=== PATIENT | female | born 1955 | race Caucasian/White ===

== ENCOUNTER → 2023-12-13 06:39 | Day surgery (SDC) | payer MEDICARE, SELFPAY | LOC: GI 06:39 | PROVIDERS: ATTENDING PHYSICIAN Internal Medicine | DX: Z12.11 Encounter for screening for malignant neoplasm of colon (principal); C20 Malignant neoplasm of rectum; D49.0 Neoplasm of unspecified behavior of digestive system; K57.30 Diverticulosis of large intestine without perforation or abscess without bleeding; D12.5 Benign neoplasm of sigmoid colon | CPT/HCPCS: 45380; 88305; 88342 ==

== ENCOUNTER → 2023-12-21 14:24 | Outpatient (REF) | payer MEDICARE, SELFPAY | LOC: HWRAD 14:24 | PROVIDERS: ATTENDING PHYSICIAN Surgery; FAMILY PHYSICIAN Family Medicine | DX: C20 Malignant neoplasm of rectum (principal) | CPT/HCPCS: 71260; 74177; Q9967 ==

== ENCOUNTER 2023-12-22 06:31 | Day surgery (SDC) | payer MEDICARE, SELFPAY ==
[2023-12-22 13:08] VITALS: BMI 38.9
[2023-12-22 13:10] VITALS: BMI 38.9
[2023-12-22 13:11] VITALS: BP 136/71
[2023-12-22 14:24] VITALS: BP 105/72
[2023-12-22 14:47] VITALS: BP 113/64
[2023-12-22 15:00] VITALS: BP 118/70
== END 2023-12-22 15:16 | disposition home or self-care (01) ==
LOC: SDS 06:31
PROVIDERS: ATTENDING PHYSICIAN Surgery
DX: C20 Malignant neoplasm of rectum (principal)
CPT/HCPCS: 45330

== ENCOUNTER → 2023-12-22 08:37 | Outpatient (REF) | payer MEDICARE, SELFPAY | LOC: MRI 3T 08:37 | PROVIDERS: ATTENDING PHYSICIAN Surgery; FAMILY PHYSICIAN Family Medicine | DX: C20 Malignant neoplasm of rectum (principal) | CPT/HCPCS: 72197; A9575 ==

== ENCOUNTER 2024-01-14 06:12 | Inpatient (IN) | payer MEDICARE, SELFPAY ==
[2024-01-10 10:01] VITALS: BMI 38.9
[2024-01-10 10:29] LABS: Hematocrit 45.9 % (37.0-47.0); Hemoglobin 15.7 g/dL (12.0-16.0); Mean Corp Hgb Conc. 34.2 g/dL (33.0-37.0); Mean Corpuscular Hgb 29.6 pg (27.0-31.0); Mean Corpuscular Volume 86.4 fL (81.0-99.0); Mean Platelet Volume 9.9 fL (7.4-10.4); Platelet Count 258 10^3/uL (130-400); Red Blood Cell Count 5.31 10^6/uL (4.20-5.40); Red Cell Dist. Width 12.6 % (11.5-14.5); White Blood Cell Count 7.1 10^3/uL (4.8-10.8)
[2024-01-10 10:43] LABS: APTT 26.2 Sec (23.4-35.0)
[2024-01-10 11:33] LABS: ALT (SGPT) 23 U/L (0-35); AST (SGOT) 30 U/L (14-36); Albumin 4.5 g/dl (3.5-5.0); Alkaline Phosphatase 78 U/L (38-126); Blood Urea Nitrogen 11 mg/dl (7-17); Calcium 9.2 mg/dl (8.4-10.2); Carbon Dioxide 26 mmol/L (22-30); Chloride 104 mmol/L (98-107); Estimated Creatinine Clearance 87 ml/min; Glucose 136 mg/dl (70-99); Potassium 4.3 mmol/L (3.5-5.1); Sodium 139 mmol/L (135-145); Total Bilirubin 0.9 mg/dl (0.2-1.3); Total Protein 7.1 g/dl (6.3-8.2); eGFR > 60.00
[2024-01-10 12:52] LABS: Glycohemoglobin (HgbA1c) 6.8 % (4.0-5.6)
[2024-01-14] VITALS (17 sets, daily range): BP systolic 28–162; BP diastolic 58–96; BMI 38.9
[2024-01-14] MEDS: NORMOSOL-R/PLASMALYTE-A 1000 IV ×2 (06:46→15:34)
[2024-01-14] MEDS: NEURONTIN 600 MG PO (06:46)
[2024-01-14] MEDS: TYLENOL 1000 MG PO (06:47)
[2024-01-14] MEDS: ENTEREG 12 MG PO (06:47)
[2024-01-14] MEDS: HEPARIN 5000 UNITS SC (06:47)
--- NOTE | 2024-01-14 13:08 | W.OR.REC1 ---
Rectal Surgery Post Op Note
Immediate Post Op
Primary Surgeon: Gayathri Starr MD
Assisting Surgeon: GIULIANA Mayo
Pre-op Diagnosis: rectal cancer
Post-op Diagnosis: same
Procedure Performed: 1) robotic low-anterior resection (LAR) 2) flexible sigmoidoscopy
Anesthesia Type: general plus local
Specimen / Cultures: 1) rectosigmoid 2) distal anastomotic donut
Estimated Blood Loss: 30 cc
Complications: no immediate
Operative Findings: 1) 3 cm rectal mass with distal tattooing 2) no obvious intraabdominal metastases
#19 Bk in pelvis.
Melo, ureteral stents, ureteral ICG by Dr. Hamlin of urology. One stent removed at end of case.
Sending to med surg.
Cancer Report
ASA Score: II
Case Status: Elective
Operation: Low anterior resection
Modailty: Robotic
Location of tumor within rectum: Middle
Height of lower edge of tumor from anal verge: 11 cm
Mobilization of splenic flexure: No
Level of ligation of inferior mesenteric artery: Inferior mesenteric artery
Level of ligation of inferior mesenteric vein: None
Level of rectal transectiondistal to distal edge of tumor: 4-5 cm
Type of Reconstruction: Stapled end-end
Anastomotic testing method(s): Rectal air infusion under pelvic fluid (with flexible sigmoidoscopy) and Palpation
Creation of stoma: No
En bloc resection: No
Metastectomy: No
Completeness of tumor resection: R0
Interoperative Complications: No
Blood transfusion: No
Total Mesorectal Excision photographed: in pathology
[2024-01-14] MEDS: ZOFRAN 4 MG IV (14:14)
[2024-01-14 14:19] LABS: % Basophils 0.2 % (0-2); % Immature Granulocytes 0.7 % (0-0.5); % Lymphocytes 4.4 % (20.5-51.1); % Monocytes 3.8 % (1.7-9.3); % Neutrophils 90.9 % (42.2-75.2); Absolute Immature Granulocytes 0.1 10^3/uL (0-0.05); Absolute Lymphocytes 0.8 10^3/uL (1.2-3.4); Absolute Monocytes 0.7 10^3/uL (0.1-0.6); Absolute Neutrophils 16.6 10^3/uL (1.4-6.5); Hematocrit 41.8 % (37.0-47.0); Hemoglobin 14.5 g/dL (12.0-16.0); Mean Corp Hgb Conc. 34.7 g/dL (33.0-37.0); Mean Corpuscular Hgb 29.1 pg (27.0-31.0); Mean Corpuscular Volume 83.9 fL (81.0-99.0); Mean Platelet Volume 9.2 fL (7.4-10.4); Nucleated Red Blood Cells % 0 %; Platelet Count 257 10^3/uL (130-400); Red Blood Cell Count 4.98 10^6/uL (4.20-5.40); Red Cell Dist. Width 12.7 % (11.5-14.5); White Blood Cell Count 18.3 10^3/uL (4.8-10.8)
[2024-01-14] MEDS: TORADOL 10 MG IV ×2 (14:31→20:18)
[2024-01-14] MEDS: SUBLIMAZE 50 MCG IV (14:33)
[2024-01-14 14:37] LABS: Blood Urea Nitrogen 12 mg/dl (7-17); Calcium 8.3 mg/dl (8.4-10.2); Carbon Dioxide 21 mmol/L (22-30); Chloride 103 mmol/L (98-107); Estimated Creatinine Clearance 76 ml/min; Glucose 243 mg/dl (70-99); Magnesium 2.1 mg/dl (1.6-2.3); Potassium 3.3 mmol/L (3.5-5.1); Sodium 137 mmol/L (135-145); eGFR > 60.00
[2024-01-14] MEDS: NOVOLOG vial 2 UNITS SC (15:16)
[2024-01-14] MEDS: TYLENOL 650 MG PO ×2 (16:16→20:18)
[2024-01-14] MEDS: KCL 270 MEQ IV (16:21)
--- NOTE | 2024-01-14 16:53 | CON.HOSP ---
Family Physician
-
Family Physician: Cecil Beauchamp
Chief Complaint
-
Hyperglycemia
History of Present Illness
68 years old female who was admitted for elective surgery for rectal cancer presented with hyperglycemia. Patient had history of hemoglobin A1c around 6.8. Patient denied taking diabetes medications before. She denied excessive thirst or urinary
tract infections. Currently she was noted to have blood glucose around 200. She is receiving intravenous fluid.
Medical History
Past Medical History
Past Medical History: Reports Other ( History of asthma, history of anemia)
Past Surgical History: Reports Other (No history of cardiac or abdominal surgeries.)
Social History
Tobacco: Non-smoker
Alcohol: Occasional
Drug: None
Personal:
Living: With Family
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
Family History
Family History: Other ( Her mother had history of gastric/esophageal cancer)
Allergies / Home Medications
Allergies reflects when Allergies were last updated in [employer].
Home Medications with original date entered in [employer]
Allergy/Medication List:
Allergies
Allergy/AdvReac Type Severity Reaction Status Date / Time
Sulfa (Sulfonamide Allergy Rash, Hives Verified 01/14/24 06:20
Antibiotics)
Home Medications
cholecalciferol (vitamin D3) 50 mcg (2,000 unit) tablet (Vitamin D3) 50 mcg PO DAILY 05/06/23
collagen 1,000 mg PO DAILY 05/06/23
fluticasone 250 mcg-salmeterol 50 mcg/dose blistr powdr for inhalation (Advair Diskus) 1 inh inhalation DAILY 05/06/23
[place] 3 1 cap PO DAILY 01/07/24
albuterol sulfate 90 mcg/actuation aerosol inhaler 1 puff inhalation PRN PRN SOB, Wheezes 01/07/24
glucosamine-chondroitin 250 mg-200 mg tablet (Osteo Bi-Flex) 1 tab PO PRN PRN With Exercise 01/07/24
metronidazole 500 mg tablet 500 mg PO PRE OP 01/07/24
neomycin 500 mg tablet 1 g PO PRE OP 01/07/24
sodium sul 1.479 gram-potas ch 0.188 gram-magnes sul 0.225 gram tablet (Sutab) 0 tab PO PRE OP 01/07/24
Review of Systems
-
History Source: Patient
A 12 point Review of Systems was completed except as noted: Yes
Constitutional: Denies Fever
EENT: Denies Sore Throat
Respiratory: Denies Cough
Cardiac: Denies Chest Pain
Abdomen/GI: Denies Abdominal Pain
: Denies Dysuria
Musculoskeletal: Denies Joint Pain
Skin: Denies Itching
Neurological: Denies Numbness
Endocrine: Denies Temp Intolerance
Hematologic/Lymphatic: Denies Bruising
Psych: Denies Panic Disorder
Physical Exam
Vital Signs
Vital Signs
Temp Pulse Resp BP Pulse Ox
97.5 F 78 16 148/78 97
01/14/24 15:51 01/14/24 15:51 01/14/24 15:51 01/14/24 15:51 01/14/24 15:51
Physical Exam
General: No Apparent Distress and Comfortable
HEENT: Moist Mucous Membranes
Respiratory: Clear and Non Labored Respirations
Cardiac: S1/S2 and Regular Rhythm; Negative Murmur
GI: Soft, Non Tender and Normal Bowel Sounds
Rectal: Negative Maroon Stools
Genito-urinary: Clear Urine
Musculoskeletal: No Clubbing and No Cyanosis
Skin: Warm; Negative Jaundice
Neuro: AO x 3; Negative Slurred Speech, Facial Droop or Tremors
Psych: Calm and Intact Judgement
Laboratory Results
-
Laboratory Results
01/14/24 14:10
01/14/24 14:10
PT 13.0 Sec (11.4-14.6) 01/10/24 08:51
INR 1.00 01/10/24 08:51
APTT 26.2 Sec (23.4-35.0) 01/10/24 08:51
Total Bilirubin 0.9 mg/dl (0.2-1.3) 01/10/24 08:51
AST 30 U/L (14-36) 01/10/24 08:51
ALT 23 U/L (0-35) 01/10/24 08:51
Alkaline Phosphatase 78 U/L (38-126) 01/10/24 08:51
Impression / Plan
-
68 years old female presented with hyperglycemia
#Hyperglycemia. Newly diagnosed prediabetic/Type II diabetic
Patient denied previous treatment for diabetes.
Start the patient on insulin scale. Long-acting insulin night. Will monitor her insulin need and adjust. Hopefully we can give her oral hypoglycemic agent once diet is allowed.
Hemoglobin A1c 6.8.
# S/p robotic low-anterior resection (LAR) and flexible sigmoidoscopy by Dr. Starr on 01/14/24. No complications reported.
Will follow-up with bowel rest, mild sips of clears for now. Pain control.
# Leukocytosis, likely reactive. Monitor. No fevers
# History of asthma, no wheezes heard.
# Hypokalemia, replace
# GI prophylaxis with Protonix. DVT prophylaxis with Thromboguards
Thank you for your consultation, we will follow patient while in the hospital
Total time spent to see the patient, examine the patient on the floor, review data and lab results, discuss treatment plan with patient, her , nursing staff around 75 minutes.
[2024-01-14 17:20] LABS: Glucose - Point of Care 214 mg/dl (70-99)
[2024-01-14] MEDS: NOVOLOG FLEXPEN-MODERATE RESISTANCE 3 UNITS SC (17:27)
[2024-01-14 18:45] LABS: Hepatitis C Antibody Negative (Negative)
[2024-01-14] MEDS: FLOMAX 0.4 MG PO (22:06)
[2024-01-14] MEDS: LANTUS 0.1 UNITS SC (22:07)
[2024-01-14 22:18] LABS: Glucose - Point of Care 184 mg/dl (70-99)
[2024-01-14] MEDS: DILAUDID 0.5 MG IV (22:27)
[2024-01-15] MEDS: TYLENOL PO (00:34)
[2024-01-15] MEDS: TORADOL 10 MG IV ×2 (02:38→08:20)
[2024-01-15 03:25] VITALS: BP 124/65
[2024-01-15] MEDS: TYLENOL 650 MG PO ×5 (03:56→19:39)
[2024-01-15] MEDS: NORMOSOL-R/PLASMALYTE-A 1000 IV ×3 (03:57→23:52)
[2024-01-15 06:00] VITALS: BMI 39.5
[2024-01-15 06:02] LABS: Glucose - Point of Care 151 mg/dl (70-99)
[2024-01-15 07:10] VITALS: BP 119/60
[2024-01-15] MEDS: PROTONIX 40 MG PO (08:19)
[2024-01-15] MEDS: ENTEREG 12 MG PO ×2 (08:20→19:39)
[2024-01-15 08:22] LABS: Blood Urea Nitrogen 19 mg/dl (7-17); Calcium 8.8 mg/dl (8.4-10.2); Carbon Dioxide 23 mmol/L (22-30); Chloride 104 mmol/L (98-107); Estimated Creatinine Clearance 47 ml/min; Glucose 143 mg/dl (70-99); Magnesium 2.4 mg/dl (1.6-2.3); Potassium 4.4 mmol/L (3.5-5.1); Sodium 135 mmol/L (135-145); eGFR 44.79
[2024-01-15] MEDS: NOVOLOG FLEXPEN-MODERATE RESISTANCE SC (08:28)
[2024-01-15] MEDS: ADVAIR HFA 115/21 MCG INHALER 2 PUFF INH ×2 (08:34→20:39)
[2024-01-15 09:01] LABS: Platelet Count 202 10^3/uL (130-400)
[2024-01-15 09:04] LABS: % Basophils 0.2 % (0-2); % Immature Granulocytes 0.5 % (0-0.5); % Lymphocytes 14.4 % (20.5-51.1); % Neutrophils 75.9 % (42.2-75.2); Absolute Immature Granulocytes 0.1 10^3/uL (0-0.05); Absolute Lymphocytes 1.9 10^3/uL (1.2-3.4); Absolute Monocytes 1.2 10^3/uL (0.1-0.6); Absolute Neutrophils 9.8 10^3/uL (1.4-6.5); Hemoglobin 13.3 g/dL (12.0-16.0); Mean Corpuscular Hgb 30.2 pg (27.0-31.0); Mean Corpuscular Volume 86.4 fL (81.0-99.0); Mean Platelet Volume 9.4 fL (7.4-10.4); Nucleated Red Blood Cells % 0 %; Red Cell Dist. Width 12.9 % (11.5-14.5)
--- NOTE | 2024-01-15 09:39 | W.PN.HOSP.TC ---
Today's Communication/Plan
-
.
Assessment / Plan
Assessment / Plan
Physical Exam
General: No Apparent Distress and Comfortable
HEENT: Moist Mucous Membranes
Respiratory: Clear and Non Labored Respirations
Cardiac: S1/S2 and Regular Rhythm; Negative Murmur
GI: Soft, Non Tender and Normal Bowel Sounds
Rectal: Negative Maroon Stools
Genito-urinary: Clear Urine
Musculoskeletal: No Clubbing and No Cyanosis
Skin: Warm; Negative Jaundice
Neuro: AO x 3; Negative Slurred Speech, Facial Droop or Tremors
Psych: Calm and Intact Judgement
68 years old female presented with hyperglycemia
#Hyperglycemia. Newly diagnosed prediabetic/Type II diabetic
Patient denied previous treatment for diabetes.
c/w insulin scale. Change to TID until resuming diet then AC & HS Long-acting insulin at night. Hopefully we can give her oral hypoglycemic agent once diet is allowed.
Hemoglobin A1c 6.8.
# FER
Will need isotonic fluid
will order if no oral intake for today
# S/p robotic low-anterior resection (LAR) and flexible sigmoidoscopy by Dr. Starr on 01/14/24. No complications reported.
Will follow-up with bowel rest, mild sips of clears for now. Pain control.
# Leukocytosis, likely reactive. Monitor. No fevers
# History of asthma, no wheezes heard.
# Hypokalemia, replace
# GI prophylaxis with Protonix. DVT prophylaxis with Thromboguards
Thank you for your consultation, we will follow patient while in the hospital
Total time spent to see the patient, examine the patient on the floor, review data and lab results, discuss treatment plan with patient, her , nursing staff around 55 minutes.
Anticipated Discharge: > 48 hours
Subjective/Interval History
-
Date of Service: January 15, 2024
She is passing gas
No headache
No chest pain
Objective Data
-
Labs:
Laboratory Results
01/15/24
07:07
WBC 13.0 H
Hgb 13.3
Hct 38.0
Plt Count 202 D
Sodium 135
Potassium 4.4 D
Chloride 104
Carbon Dioxide 23
BUN 19 H
Creatinine 1.3 H
Glucose 143 H
Calcium 8.8
Vital Signs:
Vital Signs
Temp Pulse Resp BP Pulse Ox
97.7 F 73 18 119/60 96
01/15/24 07:10 01/15/24 08:37 01/15/24 08:37 01/15/24 07:10 01/15/24 08:37
I&O
01/14/24 01/15/24 01/16/24
06:59 06:59 06:59
Intake Total 2260 / 2260
Output Total 1363 / 1363
Balance 897 / 897
[2024-01-15 11:45] VITALS: BP 116/57
[2024-01-15 11:51] LABS: Glucose - Point of Care 148 mg/dl (70-99)
--- NOTE | 2024-01-15 12:18 | W.PN.CRS1 ---
Today's Communication / Plan
-
Clear liquids
Assessment/Plan
-
68 yo female presenting for scheduled surgical management of rectal cancer POD #1 Robotic LAR with flex sig
AFVSS
Cr mildly elevated post op, suspect prerenal/volume depletion
WBC improved, h/h stable
+flatus
--Trial of clears
--Scheduled Tylenol and prn dilaudid. Hold NSAIDs given rise in cr
--Continue Entereg
--Continue kingsley, plan void trial once cr normalizes
--OOB/Ambulate
--Continue IVF
--Trend labs
--SCD's while in bed, lovenox sq for VTE ppx
Subjective Data
Procedure
01/14/24 1) robotic low-anterior resection (LAR) 2) flexible sigmoidoscopy
Subjective Data
Date of Service: January 15, 2024
Patient seen and examined at bedside with Dr. Starr. Denies n/v. Passing some gas. Pain well managed.
Objective Data
-
Vital Signs
Temp Pulse Resp BP Pulse Ox
97.7 F 73 18 119/60 96
01/15/24 07:10 01/15/24 08:37 01/15/24 08:37 01/15/24 07:10 01/15/24 08:37
Intake & Output
01/14/24 01/15/24 01/16/24
06:59 06:59 06:59
Intake Total 2260 / 2260
Output Total 1363 / 1363
Balance 897 / 897
Intake:
Oral fluids 120 / 120
IV fluids (Total) 1900 / 1900
Normosol 700 / 700
IV piggybacks 240 / 240
Output:
Drain Output (Total)
Right Abdomen Shadi-Garcia A
Urine, Kingsley 1275 / 1275
Lab Results
01/15/24 07:07
01/15/24 07:07
Physical Exam
-
General: No Acute Distress
Abdomen: Soft, Non Distended and Tender (mild expected incisional tenderness)
Skin: Warm
Wound: Other (dermabond intact with no erythema)
Incision: Clear, Dry, Intact and Other (JOSS with SSF)
--- NOTE | 2024-01-15 16:03 | CM ---
Initial assessment completed at bedside with pt and .
Pt is a 68yr old female admitted for scheduled robotic low-anterior resection and flexible sigmoidoscopy with intervention to rectal cancer.
At baseline, pt lives with her in a 2 story home with 1 step to enter.
Pt is indep at baseline and drives. Pt is active at baseline.
Pt has no hx or current use of DME/VN/SNF
PCP; Cecil Beacuhamp
[facility]
PLAN; DC home with no needs
[2024-01-15 16:11] LABS: Glucose - Point of Care 121 mg/dl (70-99)
[2024-01-15] MEDS: LOVENOX 40 MG SC (16:59)
[2024-01-15 19:23] VITALS: BP 135/70
[2024-01-15] MEDS: FLOMAX 0.4 MG PO (21:36)
[2024-01-15] MEDS: LANTUS 0.1 UNITS SC (21:36)
[2024-01-15] MEDS: DILAUDID 0.5 MG IV (21:42)
[2024-01-15 21:50] LABS: Glucose - Point of Care 120 mg/dl (70-99)
[2024-01-15 22:41] VITALS: BP 130/68
[2024-01-16] MEDS: TYLENOL PO (00:10)
[2024-01-16] MEDS: TYLENOL 650 MG PO ×6 (03:34→23:12)
[2024-01-16 06:00] VITALS: BMI 41.0
[2024-01-16 07:24] VITALS: BP 145/74
[2024-01-16 07:25] LABS: Glucose - Point of Care 129 mg/dl (70-99)
[2024-01-16] MEDS: ADVAIR HFA 115/21 MCG INHALER 2 PUFF INH ×2 (08:02→21:16)
[2024-01-16] MEDS: PROTONIX 40 MG PO (08:33)
[2024-01-16] MEDS: ENTEREG 12 MG PO ×2 (08:33→19:53)
[2024-01-16 09:10] LABS: Blood Urea Nitrogen 15 mg/dl (7-17); Calcium 8.9 mg/dl (8.4-10.2); Carbon Dioxide 26 mmol/L (22-30); Chloride 107 mmol/L (98-107); Estimated Creatinine Clearance 69 ml/min; Glucose 125 mg/dl (70-99); Potassium 4.2 mmol/L (3.5-5.1); Sodium 140 mmol/L (135-145); eGFR > 60.00
[2024-01-16] MEDS: NORMOSOL-R/PLASMALYTE-A 1000 IV (10:02)
--- NOTE | 2024-01-16 11:26 | W.PN.HOSP.TC ---
Today's Communication/Plan
-
Start oral hypoglycemic agents
Assessment / Plan
Assessment / Plan
Physical Exam
General: No Apparent Distress and Comfortable
HEENT: Moist Mucous Membranes
Respiratory: Clear and Non Labored Respirations
Cardiac: S1/S2 and Regular Rhythm; Negative Murmur
GI: Soft, Non Tender and Normal Bowel Sounds. + drain, clean dressing.
Rectal: Negative Maroon Stools
Genito-urinary: Clear Urine
Musculoskeletal: No Clubbing and No Cyanosis
Skin: Warm; Negative Jaundice
Neuro: AO x 3; Negative Slurred Speech, Facial Droop or Tremors
Psych: Calm and Intact Judgement
68 years old female presented with hyperglycemia
#Hyperglycemia. Newly diagnosed prediabetic/Type II diabetic
Patient denied previous treatment for diabetes.
She is on oral diet now, adjust to diabetic diet. Start the patient on oral agents including metformin and Glipizide.
c/w insulin scale. Long-acting insulin at night, she might not need it if BS will be controlled with oral agents.
Hemoglobin A1c 6.8.
# S/p Robotic low-anterior resection (LAR) and flexible sigmoidoscopy by Dr. Starr on 01/14/24. No complications reported.
s/p bowel rest,IVF. Pain control.
She seems to have good bowel function. Started on full liquids.
# FER
Resolved with IVF.
# Leukocytosis, likely reactive. Monitor. No fevers
# History of asthma, no wheezes heard.
# Hypokalemia, replaced.
# GI prophylaxis with Protonix. DVT prophylaxis with Thromboguards
Thank you for your consultation, we will follow patient while in the hospital
Total time spent to see the patient, examine the patient on the floor, review data and lab results, discuss treatment plan with patient, nursing staff around 55 minutes.
Anticipated Discharge: 24 - 48 hours
Subjective/Interval History
-
Date of Service: January 16, 2024
She feels better, passing gas
No chest pain
Objective Data
-
Labs:
Laboratory Results
01/16/24
08:34
Sodium 140
Potassium 4.2
Chloride 107
Carbon Dioxide 26
BUN 15
Creatinine 0.9
Glucose 125 H
Calcium 8.9
Vital Signs:
Vital Signs
Temp Pulse Resp BP Pulse Ox
98.3 F 77 18 145/74 95
01/16/24 07:24 01/16/24 08:09 01/16/24 08:09 01/16/24 07:24 01/16/24 08:09
I&O
01/15/24 01/16/24 01/17/24
06:59 06:59 06:59
Intake Total 2260 / 2260 2150 / 2150
Output Total 1363 / 1363 3730 / 3730
Balance 897 / 897 -1580 / -1580
--- NOTE | 2024-01-16 11:27 | W.PN.CRS1 ---
Today's Communication / Plan
-
FLD
D/C kingsley
Assessment/Plan
-
68 yo female presenting for scheduled surgical management of rectal cancer POD #2 Robotic LAR with flex sig
AFVSS
Cr mildly elevated post op, suspect prerenal/volume depletion now back to normal
+flatus
--Advance to FLD
--Scheduled Tylenol and prn oxycodone, dilaudid. Hold NSAIDs given rise in cr
--Continue Entereg
--Discontinue kingsley for voiding trial
--OOB/Ambulate
--Decrease IVF to 75ml/hr
--Continue JOSS, will remove prior to d/c
--Trend labs
--SCD's while in bed, lovenox sq for VTE ppx
Subjective Data
Procedure
01/14/24 1) robotic low-anterior resection (LAR) 2) flexible sigmoidoscopy
Subjective Data
Date of Service: January 16, 2024
Patient seen and examined at bedside with Dr. Starr. Denies n/v. Tolerating clears. Passing a lot of flatus, no bm as of yet.
Objective Data
-
Vital Signs
Temp Pulse Resp BP Pulse Ox
98.3 F 77 18 145/74 95
01/16/24 07:24 01/16/24 08:09 01/16/24 08:09 01/16/24 07:24 01/16/24 08:09
Intake & Output
01/15/24 01/16/24 01/17/24
06:59 06:59 06:59
Intake Total 2260 / 2260 2150 / 2150
Output Total 1363 / 1363 3730 / 3730
Balance 897 / 897 -1580 / -1580
Intake:
Oral fluids 120 / 120 900 / 900
IV fluids (Total) 1900 / 1900 1250 / 1250
Normosol 700 / 700
IV piggybacks 240 / 240
Output:
Drain Output (Total)
Right Abdomen Shadi-Garcia A
Urine, Kingsley 1275 / 1275 3675 / 3675
Lab Results
01/15/24 07:07
01/16/24 08:34
Physical Exam
-
General: No Acute Distress
Abdomen: Soft, Non Distended and Tender (mild expected incisional tenderness)
Skin: Warm
Wound: Other (dermabond intact with no erythema)
Incision: Clear, Dry, Intact and Other (JOSS with SSF)
[2024-01-16] MEDS: NORMOSOL-R/PLASMALYTE-A IV (11:36)
[2024-01-16 12:07] LABS: Glucose - Point of Care 144 mg/dl (70-99)
[2024-01-16 15:05] VITALS: BP 150/73
[2024-01-16 16:20] LABS: Glucose - Point of Care 165 mg/dl (70-99)
[2024-01-16] MEDS: GLUCOPHAGE 1000 MG PO (17:06)
[2024-01-16] MEDS: ROXICODONE 5 MG PO ×2 (17:06→23:12)
[2024-01-16] MEDS: LOVENOX 40 MG SC (17:06)
[2024-01-16] MEDS: ZOFRAN 4 MG IV (17:10)
[2024-01-16] MEDS: FLOMAX 0.4 MG PO (21:59)
[2024-01-16 22:05] LABS: Glucose - Point of Care 110 mg/dl (70-99)
[2024-01-16] MEDS: LANTUS 0.1 UNITS SC (22:06)
[2024-01-16 23:08] VITALS: BP 139/72
[2024-01-17] MEDS: TYLENOL PO (05:21)
[2024-01-17 05:58] VITALS: BMI 39.7
[2024-01-17 06:34] LABS: Hematocrit 37.4 % (37.0-47.0); Hemoglobin 12.7 g/dL (12.0-16.0); Mean Corpuscular Hgb 29.1 pg (27.0-31.0); Mean Corpuscular Volume 85.8 fL (81.0-99.0); Mean Platelet Volume 9.4 fL (7.4-10.4); Platelet Count 224 10^3/uL (130-400); Red Blood Cell Count 4.36 10^6/uL (4.20-5.40); White Blood Cell Count 11.1 10^3/uL (4.8-10.8)
[2024-01-17 07:30] LABS: Blood Urea Nitrogen 13 mg/dl (7-17); Calcium 9.1 mg/dl (8.4-10.2); Carbon Dioxide 25 mmol/L (22-30); Chloride 106 mmol/L (98-107); Estimated Creatinine Clearance 61 ml/min; Glucose 107 mg/dl (70-99); Potassium 4.2 mmol/L (3.5-5.1); Sodium 139 mmol/L (135-145); eGFR > 60.00
[2024-01-17 07:45] VITALS: BP 157/80
[2024-01-17] MEDS: ADVAIR HFA 115/21 MCG INHALER 2 PUFF INH ×2 (07:49→20:02)
[2024-01-17] MEDS: GLUCOPHAGE 1000 MG PO ×2 (08:39→17:23)
[2024-01-17] MEDS: GLUCOTROL 5 MG PO (08:39)
[2024-01-17] MEDS: TYLENOL 650 MG PO ×4 (08:39→20:49)
[2024-01-17] MEDS: PROTONIX 40 MG PO (08:39)
[2024-01-17] MEDS: ENTEREG 12 MG PO ×2 (08:39→20:49)
--- NOTE | 2024-01-17 08:53 | W.PN.HOSP.TC ---
Today's Communication/Plan
-
Continue oral diabetic regimen. Oral hydration.
Assessment / Plan
Assessment / Plan
Physical Exam
General: No Apparent Distress and Comfortable
HEENT: Moist Mucous Membranes
Respiratory: Clear and Non Labored Respirations
Cardiac: S1/S2 and Regular Rhythm; Negative Murmur
GI: Soft, Non Tender and Normal Bowel Sounds. + drain, clean dressing.
Rectal: Negative Maroon Stools
Genito-urinary: Clear Urine
Musculoskeletal: No Clubbing and No Cyanosis
Skin: Warm; Negative Jaundice
Neuro: AO x 3; Negative Slurred Speech, Facial Droop or Tremors
Psych: Calm and Intact Judgement
A/P:
68 years old female presented with hyperglycemia
#Hyperglycemia. Newly diagnosed Type II diabetes mellitus
Patient denied previous treatment for diabetes.
She is on oral diet now, adjust to diabetic diet. Start the patient on oral agents including metformin and Glipizide.
She has been started on Lantus 10 units daily
c/w insulin scale. Long-acting insulin at night, she might not need it if BS will be controlled with oral agents.
Hemoglobin A1c 6.8.
# S/p Robotic low-anterior resection (LAR) and flexible sigmoidoscopy by Dr. Starr on 01/14/24. No complications reported.
s/p bowel rest,IVF and now oral intake. Pain control.
She seems to have good bowel function. Started on full liquids. Diet downgraded to clear liquids yesterday but today changed back to full liquid diet. Possible advance diet tomorrow.
# FER
Resolved with IVF. Encourage oral intake.
# Leukocytosis, likely reactive. Monitor. No fevers
# History of asthma, no wheezes heard.
# Hypokalemia, replaced.
# GI prophylaxis with Protonix. DVT prophylaxis with Thromboguards
Thank you for your consultation, we will follow patient while in the hospital
Anticipated Discharge: 24 - 48 hours
Subjective/Interval History
-
Date of Service: January 17, 2024
Mild postop abdominal discomfort, passing gases. No nausea or vomiting. No chest pain or shortness of breath
Objective Data
-
Labs:
Laboratory Results
01/17/24
06:06
WBC 11.1 H
Hgb 12.7
Hct 37.4
Plt Count 224
Sodium 139
Potassium 4.2
Chloride 106
Carbon Dioxide 25
BUN 13
Creatinine 1.0
Glucose 107 H
Calcium 9.1
Vital Signs:
Vital Signs
Temp Pulse Resp BP Pulse Ox
99.1 F 71 16 139/72 97
01/16/24 23:08 01/17/24 07:53 01/17/24 07:53 01/16/24 23:08 01/17/24 07:53
I&O
01/16/24 01/17/24 01/18/24
06:59 06:59 06:59
Intake Total 2150 / 2150 705 / 705
Output Total 3730 / 3730 1280 / 1280
Balance -1580 / -1580 -575 / -575
[2024-01-17 09:22] LABS: Glucose - Point of Care 122 mg/dl (70-99)
--- NOTE | 2024-01-17 10:19 | W.PN.CRS1 ---
Today's Communication / Plan
-
With fulls.
Out of bed.
Assessment/Plan
-
POD 3.
1. Tolerating clears. Go to fulls.
2. Encourage out of bed.
3. Urinating well.
4. Labs reasonable.
5. Hopefully home tomorrow.
6. Appreciate hospitalist help.
Subjective Data
Procedure
01/14/24 1) robotic low-anterior resection (LAR) 2) flexible sigmoidoscopy
Subjective Data
Date of Service: January 17, 2024
Had some cramping yesterday and diet was backed off to clears. Feels great this morning however. Passed a lot of wound. No BMs yet. Hungry.
Objective Data
-
Vital Signs
Temp Pulse Resp BP Pulse Ox
98.3 F 71 16 157/80 97
01/17/24 07:45 01/17/24 07:53 01/17/24 07:53 01/17/24 07:45 01/17/24 07:53
Intake & Output
01/16/24 01/17/24 01/18/24
06:59 06:59 06:59
Intake Total 2150 / 2150 705 / 705
Output Total 3730 / 3730 1280 / 1280
Balance -1580 / -1580 -575 / -575
Intake:
Oral fluids 900 / 900 480 / 480
IV fluids (Total) 1250 / 1250 225 / 225
Output:
Drain Output (Total) 55 80 / 80
Right Abdomen Shadi-Garcia A 80 / 80
UrineKameron 3675 / 3675 1200 / 1200
Other:
Number of approximated MODERATE 2
amounts of urine
Number of approximated LARGE 2
amounts of urine
Lab Results
01/17/24 06:06
01/17/24 06:06
Physical Exam
-
General: No Acute Distress
Chest: Clear
Cardiovascular: Regular Rate & Rhythm
Abdomen: Soft, Non Distended, Tender (Normal incisional) and Other (JOSS with serosanguineous)
Extremities: No Edema and No Calf Tenderness
Incision: Clear, Dry, Intact and No Skin Erythema
[2024-01-17 15:40] VITALS: BP 157/72
--- NOTE | 2024-01-17 15:41 | CM ---
Reviewed chart notes and spoke with the patient and her spouse at the bedside. Patient on full liquid diet. Patient reports ambulating ad talia in room and hallway. JOSS drain remains. CM continues to be available to patient/family and is monitoring
medical plan for needs at discharge.
Plan: Discharge to home when medically stable. If d/c'd with JOSS drain VN may be needed.
[2024-01-17 16:42] LABS: Glucose - Point of Care 90 mg/dl (70-99)
[2024-01-17] MEDS: LOVENOX 40 MG SC (17:23)
[2024-01-17 21:46] LABS: Glucose - Point of Care 90 mg/dl (70-99)
[2024-01-17] MEDS: LANTUS 0.1 UNITS SC (22:25)
[2024-01-17] MEDS: FLOMAX 0.4 MG PO (22:25)
[2024-01-17 23:45] VITALS: BP 153/72
[2024-01-18] MEDS: TYLENOL 650 MG PO ×4 (00:05→11:42)
[2024-01-18 06:00] VITALS: BMI 39.0
[2024-01-18 07:25] VITALS: BP 147/71
[2024-01-18] MEDS: ADVAIR HFA 115/21 MCG INHALER 2 PUFF INH (07:38)
[2024-01-18 07:42] LABS: Glucose - Point of Care 98 mg/dl (70-99)
[2024-01-18 08:30] LABS: Hematocrit 37.4 % (37.0-47.0); Hemoglobin 12.9 g/dL (12.0-16.0); Mean Corp Hgb Conc. 34.5 g/dL (33.0-37.0); Mean Corpuscular Hgb 29.8 pg (27.0-31.0); Mean Corpuscular Volume 86.4 fL (81.0-99.0); Mean Platelet Volume 9.9 fL (7.4-10.4); Platelet Count 232 10^3/uL (130-400); Red Blood Cell Count 4.33 10^6/uL (4.20-5.40); Red Cell Dist. Width 12.4 % (11.5-14.5); White Blood Cell Count 8.2 10^3/uL (4.8-10.8)
[2024-01-18 08:56] LABS: Blood Urea Nitrogen 9 mg/dl (7-17); Calcium 9.1 mg/dl (8.4-10.2); Carbon Dioxide 26 mmol/L (22-30); Chloride 104 mmol/L (98-107); Estimated Creatinine Clearance 87 ml/min; Glucose 82 mg/dl (70-99); Potassium 3.8 mmol/L (3.5-5.1); Sodium 137 mmol/L (135-145); eGFR > 60.00
[2024-01-18] MEDS: ENTEREG 12 MG PO (09:06)
[2024-01-18] MEDS: GLUCOTROL 5 MG PO (09:06)
[2024-01-18] MEDS: GLUCOPHAGE 1000 MG PO (09:06)
[2024-01-18] MEDS: PROTONIX 40 MG PO (09:06)
--- NOTE | 2024-01-18 10:14 | PN.CDI ---
CDI
- -
CDI:
Physician Documentation Request
Admit Date: 01/14/24 06:12
Dear Doctor Juanita,
Patient admitted with rectal cancer s/p robotic low anterior resection.
Please review the following and provide your response in the progress notes.
Clinical Indicators: (01/16/24)
Height: 5' 3'
Weight: 231 lb 8 oz
BMI: 41.0
[place] provide an associated diagnosis related to the abnormal BMI, such as:
Morbid obesity
Obesity
BMI is not significant
Other
BMI > or = to 40
Overweight
Obesity:
Due to excess calories
Drug induced
Due to other cause
Severe or morbid obesity:
With alveolar hypoventilation (Obesity hypoventilation syndrome)
Without alveolar hypoventilation
Use of terms such as suspected, likely, concern for, or probable (associated with a specific diagnosis that is being evaluated, monitored, or treated as if it exists) are acceptable and can be coded in the inpatient setting, when documented at the
time of discharge.
Thank you,
Nikki VALDES,RN,CCDS
CDI Specialist
Available via [place] text
Please use your independent medical judgment in providing your response.
--- NOTE | 2024-01-18 10:33 | W.PN.HOSP.TC ---
Addendum entered and electronically signed by Renaldo Grant MD 01/18/24 18:28:
Morbid obesity
Original Note:
Today's Communication/Plan
-
Discharge planning today.
Assessment / Plan
Assessment / Plan
Physical Exam
General: No Apparent Distress and Comfortable
HEENT: Moist Mucous Membranes
Respiratory: Clear and Non Labored Respirations
Cardiac: S1/S2 and Regular Rhythm; Negative Murmur
GI: Soft, Non Tender and Normal Bowel Sounds. + drain, clean dressing.
Rectal: Negative Maroon Stools
Genito-urinary: Clear Urine
Musculoskeletal: No Clubbing and No Cyanosis
Skin: Warm; Negative Jaundice
Neuro: AO x 3; Negative Slurred Speech, Facial Droop or Tremors
Psych: Calm and Intact Judgement
A/P:
68 years old female presented with hyperglycemia
#Hyperglycemia. Newly diagnosed Type II diabetes mellitus
Patient denied previous treatment for diabetes.
She is on oral diet now, adjust to diabetic diet. Start the patient on oral agents including metformin and Glipizide. Prescribed metformin and glipizide upon discharge.
She has been started on Lantus 10 units daily-no need for discharge.
c/w insulin scale. Long-acting insulin at night, no need upon discharge.
Hemoglobin A1c 6.8.
# S/p Robotic low-anterior resection (LAR) and flexible sigmoidoscopy by Dr. Starr on 01/14/24. No complications reported.
s/p bowel rest,IVF and now oral intake. Pain control.
She seems to have good bowel function. Diet low residue today.
Discharge planning today
# FER
Resolved with IVF. Encourage oral intake.
# Leukocytosis, likely reactive. Monitor. No fevers
# History of asthma, no wheezes heard.
# Hypokalemia, replaced.
# GI prophylaxis with Protonix. DVT prophylaxis with Thromboguards
Thank you for your consultation, we will follow patient while in the hospital
Anticipated Discharge: Today
Subjective/Interval History
-
Date of Service: January 18, 2024
Patient seen and examined. No new complaints.
Objective Data
-
Labs:
Laboratory Results
01/18/24
07:07
WBC 8.2
Hgb 12.9
Hct 37.4
Plt Count 232
Sodium 137
Potassium 3.8
Chloride 104
Carbon Dioxide 26
BUN 9
Creatinine 0.7
Glucose 82
Calcium 9.1
Vital Signs:
Vital Signs
Temp Pulse Resp BP Pulse Ox
98.5 F 70 14 147/71 97
01/18/24 07:25 01/18/24 07:40 01/18/24 07:40 01/18/24 07:25 01/18/24 07:40
I&O
01/17/24 01/18/24 01/19/24
06:59 06:59 06:59
Intake Total 705 / 705 480 / 480
Output Total 1280 / 1280 115 / 115
Balance -575 / -575 365 / 365
--- NOTE | 2024-01-18 10:43 | CM ---
Addendum entered by Nicole Victoria RN 01/18/24 14:16:
JOSS drain removed. Spouse will provide transportation home.
Addendum entered by Nicole Victoria RN 01/18/24 11:21:
IMM signed and placed on the chart.
Original Note:
Reviewed the chart notes. Patient's diet upgraded to low residue. CM continues to be available to patient/family and is monitoring medical plan for needs at discharge.
Plan: Discharge to home when medically stable. If JOSS drain remains at discharge may benefit from VN services.
[2024-01-18 11:29] LABS: Glucose - Point of Care 76 mg/dl (70-99)
--- NOTE | 2024-01-18 12:06 | W.PN.CRS1 ---
Today's Communication / Plan
-
Diet advancement and potential discharge
Assessment/Plan
-
POD 4.
1. Tolerated fulls without issues. Will advance to low residue diet.
2. Having bowel function.
3. Blood work and vitals reasonable.
4. Urinating well.
5. JOSS removed at bedside.
6. If tolerates lunch, can be discharged this afternoon.
7. Appreciate hospitalist help.
Subjective Data
Procedure
01/14/24 1) robotic low-anterior resection (LAR) 2) flexible sigmoidoscopy
Subjective Data
Date of Service: January 18, 2024
Tolerated fulls. Having BMs. Good pain control.
Objective Data
-
Vital Signs
Temp Pulse Resp BP Pulse Ox
98.5 F 70 14 147/71 97
01/18/24 07:25 01/18/24 07:40 01/18/24 07:40 01/18/24 07:25 01/18/24 07:40
Intake & Output
01/17/24 01/18/24 01/19/24
06:59 06:59 06:59
Intake Total 705 / 705 480 / 480
Output Total 1280 / 1280 115 / 115
Balance -575 / -575 365 / 365
Intake:
Oral fluids 480 / 480 480 / 480
IV fluids (Total) 225 / 225
Output:
Drain Output (Total) 80 / 80 115 / 115
Right Abdomen Shadi-Garcia A 80 / 80 115 / 115
Urine, Melo 1200 / 1200
Other:
Number of approximated MODERATE 2 5
amounts of urine
Number of approximated LARGE 2
amounts of urine
Lab Results
01/18/24 07:07
01/18/24 07:07
Physical Exam
-
General: No Acute Distress
Chest: Clear
Cardiovascular: Regular Rate & Rhythm
Abdomen: Soft, Non Distended, Tender (Mild incisional) and Other (JOSS with serosanguineous)
Extremities: No Calf Tenderness
Incision: Clear, Dry, Intact and No Skin Erythema
--- NOTE | 2024-01-18 12:56 | W.DS.TRANS ---
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
-
Discharge Instructions:
Sleep Apnea Risk Low
Discharge Diagnosis/Procedures Low anterior resection
Diet Low Fiber,Diabetic, Carb Controlled
Activity No strenuous activity
Additional Activity Do not lift over 10lbs (gallon of milk) until
cleared by your surgeon
Driving Restrictions No driving for 1 week
Bathing Restrictions OK to Shower
Wound Care Wash incisions gently with soap and water. The
glue will fall off on it's own in 2-3 weeks.
Avoid picking or scrubbing off glue
Instructions: Low Fiber Diet
Stand-Alone Forms:
Changes to Home Medications: Yes
Discharge Medications:
DC Medications w/original date entered in [employer]
cholecalciferol (vitamin D3) 50 mcg (2,000 unit) tablet (Vitamin D3) 50 mcg PO DAILY Supplement 05/06/23
collagen 1,000 mg PO DAILY Supplement 05/06/23
fluticasone 250 mcg-salmeterol 50 mcg/dose blistr powdr for inhalation (Advair Diskus) 1 inh inhalation DAILY Lung/Breathing Issues 05/06/23
Howard 3 1 cap PO DAILY Supplement 01/07/24
albuterol sulfate 90 mcg/actuation aerosol inhaler 1 puff inhalation PRN PRN SOB, Wheezes 01/07/24
glucosamine-chondroitin 250 mg-200 mg tablet (Osteo Bi-Flex) 1 tab PO PRN PRN SUPP/EXERCISE 01/07/24
glipizide 5 mg tablet 5 mg PO DAILY 30 days #30 tabs 01/18/24
metformin 1,000 mg tablet 1,000 mg PO BID@0800,1700 30 days #60 tabs 01/18/24
oxycodone 5 mg capsule 5 mg PO Q6H PRN breakthrough pain 7 days #20 caps 01/18/24
Home Medication Changes
glipizide 5 mg tablet 5 mg PO DAILY 30 days #30 tabs 01/18/24
metformin 1,000 mg tablet 1,000 mg PO BID@0800,1700 30 days #60 tabs 01/18/24
oxycodone 5 mg capsule 5 mg PO Q6H PRN breakthrough pain 7 days #20 caps 01/18/24
Pending Results: Yes (surgical pathology)
[2024-01-18 14:00] VITALS: BP 140/73
--- NOTE | 2024-01-24 10:36 | PN.CDI ---
CDI
- -
CDI:
Physician Documentation Request
Admit Date: 01/14/24 06:12
Dear Doctor Matty,
Please review the following and provide your response in the progress notes.
Clinical Indicators:
The pathology report became available after the patient was discharged. According to inpatient coding guidelines, we cannot code directly from the path report without physician confirmation.
The pathology report lists five out of fifty-nine (5/59) lymph nodes positive for metastatic carcinoma - [id number]. If this is clinically significant and you agree with these findings, please document in your progress note.
Use of terms such as suspected, likely, concern for, or probable (associated with a specific diagnosis that is being evaluated, monitored, or treated as if it exists) are acceptable and can be coded in the inpatient setting, when documented at the
time of discharge.
Thank you,
Isa Martin
[employer] Making Machine Supervisor
Please use your independent medical judgment in providing your response.
--- NOTE | 2024-02-01 13:24 | W.PN.UPDATE ---
Update Note
Progress Note Update
Of note, patient's surgical path ultimately came back stage III rectal cancer/adenocarcinoma (pT1N2a); which I agree with.
== END 2024-01-18 14:48 | disposition home or self-care (01) | DRG 330 ==
LOC: 2 SOUTH 06:12
PROVIDERS: Registered Nurse; Surgery; ADMITTING PHYSICIAN Surgery; FAMILY PHYSICIAN Family Medicine; OTHER PHYSICIAN Internal Medicine
PROC: 0DBN4ZZ Excision of Sigmoid Colon, Percutaneous Endoscopic Approach (ICD-10-PCS; 2024-01-14)
PROC: 0T788DZ Dilation of Bilateral Ureters with Intraluminal Device, Via Natural or Artificial Opening Endoscopic (ICD-10-PCS; 2024-01-14)
PROC: 0DTP4ZZ Resection of Rectum, Percutaneous Endoscopic Approach (ICD-10-PCS; 2024-01-14)
PROC: 8E0W4CZ Robotic Assisted Procedure of Trunk Region, Percutaneous Endoscopic Approach (ICD-10-PCS; 2024-01-14)
DX: C20 Malignant neoplasm of rectum (principal); C77.2 Secondary and unspecified malignant neoplasm of intra-abdominal lymph nodes; N17.9 Acute kidney failure, unspecified; Z68.41 Body mass index [BMI] 40.0-44.9, adult; E11.65 Type 2 diabetes mellitus with hyperglycemia; D72.829 Elevated white blood cell count, unspecified; J45.909 Unspecified asthma, uncomplicated; E66.01 Morbid (severe) obesity due to excess calories; E87.6 Hypokalemia; K57.30 Diverticulosis of large intestine without perforation or abscess without bleeding
CPT/HCPCS: 88304; 88309; 36415; 80048; 80053; 82962; 83036; 83735; 85025; 85027; 85610; 85730; 86803; 86850; 86870; 86900; 86901; 86902; 86905; 86920; 86922; 93005; 94640; J1335

== ENCOUNTER → 2024-02-15 08:28 | Outpatient (REF) | payer MEDICARE, SELFPAY ==
[2024-02-15 08:53] VITALS: BP 150/85; BP_SYST 71
[2024-02-15 09:08] LABS: Glucose - Point of Care 115 mg/dl (70-99)
[2024-02-15] MEDS: ANCEF 10 IV (09:31)
[2024-02-15] MEDS: ZOFRAN 4 MG IV (09:39)
[2024-02-15 10:40] VITALS: BP 166/81
[2024-02-15 10:45] VITALS: BP 165/79
[2024-02-15 10:53] LABS: Glucose - Point of Care 126 mg/dl (70-99)
[2024-02-15 10:55] VITALS: BP 131/80
[2024-02-15 11:00] VITALS: BP 168/74
[2024-02-15 11:16] VITALS: BP 142/82
== END ==
LOC: RADI 08:28
PROVIDERS: ATTENDING PHYSICIAN Internal Medicine Hematology & Oncology; FAMILY PHYSICIAN Family Medicine
DX: C19 Malignant neoplasm of rectosigmoid junction (principal)
CPT/HCPCS: 36561; 76937; 77001; 82962; 99152; 99153; C1788

== ENCOUNTER → 2024-02-15 08:33 | Outpatient (REF) | payer MEDICARE, SELFPAY ==
[2024-02-15 11:15] LABS: % Eosinophils 2.6 % (0-6); % Immature Granulocytes 0.3 % (0-0.5); % Lymphocytes 34.9 % (20.5-51.1); % Monocytes 9.3 % (1.7-9.3); % Neutrophils 51.9 % (42.2-75.2); Absolute Basophils 0.1 10^3/uL (0-0.2); Absolute Eosinophils 0.2 10^3/uL (0-0.7); Absolute Lymphocytes 3.1 10^3/uL (1.2-3.4); Absolute Monocytes 0.8 10^3/uL (0.1-0.6); Absolute Neutrophils 4.5 10^3/uL (1.4-6.5); Hematocrit 39.9 % (37.0-47.0); Hemoglobin 13.6 g/dL (12.0-16.0); Mean Corp Hgb Conc. 34.1 g/dL (33.0-37.0); Mean Corpuscular Hgb 28.3 pg (27.0-31.0); Mean Platelet Volume 10.3 fL (7.4-10.4); Nucleated Red Blood Cells % 0 %; Platelet Count 232 10^3/uL (130-400); Red Blood Cell Count 4.81 10^6/uL (4.20-5.40); Red Cell Dist. Width 12.3 % (11.5-14.5); White Blood Cell Count 8.7 10^3/uL (4.8-10.8)
[2024-02-15 11:20] LABS: ALT (SGPT) 36 U/L (0-35); AST (SGOT) 32 U/L (14-36); Albumin 4.1 g/dl (3.5-5.0); Alkaline Phosphatase 64 U/L (38-126); Blood Urea Nitrogen 12 mg/dl (7-17); Calcium 8.8 mg/dl (8.4-10.2); Carbon Dioxide 25 mmol/L (22-30); Chloride 104 mmol/L (98-107); Glucose 120 mg/dl (70-99); Potassium 3.8 mmol/L (3.5-5.1); Sodium 142 mmol/L (135-145); Total Bilirubin 0.7 mg/dl (0.2-1.3); Total Protein 6.4 g/dl (6.3-8.2); eGFR > 60.00
== END ==
LOC: REG 08:33
PROVIDERS: ATTENDING PHYSICIAN Internal Medicine Hematology & Oncology; FAMILY PHYSICIAN Family Medicine
DX: C19 Malignant neoplasm of rectosigmoid junction (principal)
CPT/HCPCS: 80053; 85025

== ENCOUNTER → 2024-03-06 08:00 | Outpatient (REF) | payer MEDICARE, SELFPAY ==
[2024-03-06 08:35] LABS: Hematocrit 40.2 % (37.0-47.0); Hemoglobin 14.2 g/dL (12.0-16.0); Mean Corp Hgb Conc. 35.3 g/dL (33.0-37.0); Mean Corpuscular Hgb 29.6 pg (27.0-31.0); Mean Corpuscular Volume 83.8 fL (81.0-99.0); Mean Platelet Volume 9.7 fL (7.4-10.4); Platelet Count 170 10^3/uL (130-400); Red Cell Dist. Width 12.7 % (11.5-14.5); White Blood Cell Count 3.6 10^3/uL (4.8-10.8)
[2024-03-06 09:01] LABS: ALT (SGPT) 46 U/L (0-35); AST (SGOT) 34 U/L (14-36); Albumin 3.9 g/dl (3.5-5.0); Alkaline Phosphatase 68 U/L (38-126); Blood Urea Nitrogen 10 mg/dl (7-17); Calcium 9.1 mg/dl (8.4-10.2); Carbon Dioxide 24 mmol/L (22-30); Chloride 106 mmol/L (98-107); Glucose 141 mg/dl (70-99); Potassium 3.4 mmol/L (3.5-5.1); Sodium 143 mmol/L (135-145); Total Bilirubin 0.5 mg/dl (0.2-1.3); Total Protein 6.2 g/dl (6.3-8.2); eGFR > 60.00
[2024-03-06 09:31] LABS: Absolute Neutrophils 0.8 10^3/uL (1.4-6.5)
[2024-03-06 09:33] LABS: % Basophils 1.9 % (0-2); % Eosinophils 10.4 % (0-6); % Lymphocytes 51.6 % (20.5-51.1); % Monocytes 15.1 % (1.7-9.3); Absolute Basophils 0.1 10^3/uL (0-0.2); Absolute Eosinophils 0.4 10^3/uL (0-0.7); Absolute Lymphocytes 1.9 10^3/uL (1.2-3.4); Absolute Monocytes 0.6 10^3/uL (0.1-0.6); Nucleated Red Blood Cells % 0 %
== END ==
LOC: REG 08:00
PROVIDERS: ATTENDING PHYSICIAN Internal Medicine Hematology & Oncology; FAMILY PHYSICIAN Family Medicine
DX: C19 Malignant neoplasm of rectosigmoid junction (principal)
CPT/HCPCS: 36415; 80053; 85025

== ENCOUNTER → 2024-03-13 08:02 | Outpatient (REF) | payer MEDICARE, SELFPAY ==
[2024-03-13 09:04] LABS: Hematocrit 43.1 % (37.0-47.0); Hemoglobin 14.5 g/dL (12.0-16.0); Mean Corp Hgb Conc. 33.6 g/dL (33.0-37.0); Mean Corpuscular Hgb 28.3 pg (27.0-31.0); Mean Corpuscular Volume 84.2 fL (81.0-99.0); Mean Platelet Volume 9.8 fL (7.4-10.4); Platelet Count 261 10^3/uL (130-400); Red Blood Cell Count 5.12 10^6/uL (4.20-5.40); Red Cell Dist. Width 13.4 % (11.5-14.5)
[2024-03-13 09:37] LABS: ALT (SGPT) 36 U/L (0-35); AST (SGOT) 33 U/L (14-36); Albumin 4.1 g/dl (3.5-5.0); Alkaline Phosphatase 74 U/L (38-126); Blood Urea Nitrogen 10 mg/dl (7-17); Calcium 9.3 mg/dl (8.4-10.2); Carbon Dioxide 26 mmol/L (22-30); Chloride 103 mmol/L (98-107); Glucose 146 mg/dl (70-99); Sodium 141 mmol/L (135-145); Total Bilirubin 0.5 mg/dl (0.2-1.3); Total Protein 6.6 g/dl (6.3-8.2); eGFR > 60.00
[2024-03-13 09:55] LABS: % Basophils 2.4 % (0-2); % Eosinophils 7.6 % (0-6); % Immature Granulocytes 0.2 % (0-0.5); % Lymphocytes 59.7 % (20.5-51.1); % Monocytes 15.6 % (1.7-9.3); % Neutrophils 14.5 % (42.2-75.2); Absolute Basophils 0.1 10^3/uL (0-0.2); Absolute Eosinophils 0.4 10^3/uL (0-0.7); Absolute Monocytes 0.8 10^3/uL (0.1-0.6); Absolute Neutrophils 0.7 10^3/uL (1.4-6.5); Nucleated Red Blood Cells % 0 %
== END ==
LOC: REG 08:02
PROVIDERS: ATTENDING PHYSICIAN Internal Medicine Hematology & Oncology; FAMILY PHYSICIAN Family Medicine
DX: C19 Malignant neoplasm of rectosigmoid junction (principal)
CPT/HCPCS: 36415; 80053; 85025

== ENCOUNTER → 2024-03-27 08:14 | Outpatient (REF) | payer MEDICARE, SELFPAY ==
[2024-03-27 09:36] LABS: ALT (SGPT) 29 U/L (0-35); AST (SGOT) 33 U/L (14-36); Alkaline Phosphatase 119 U/L (38-126); Blood Urea Nitrogen 12 mg/dl (7-17); Calcium 8.9 mg/dl (8.4-10.2); Carbon Dioxide 26 mmol/L (22-30); Chloride 101 mmol/L (98-107); Glucose 146 mg/dl (70-99); Potassium 3.2 mmol/L (3.5-5.1); Sodium 140 mmol/L (135-145); Total Bilirubin 0.3 mg/dl (0.2-1.3); Total Protein 6.3 g/dl (6.3-8.2); eGFR > 60.00
[2024-03-27 10:04] LABS: Hematocrit 41.7 % (37.0-47.0); Hemoglobin 14.2 g/dL (12.0-16.0); Mean Corp Hgb Conc. 34.1 g/dL (33.0-37.0); Mean Corpuscular Hgb 28.4 pg (27.0-31.0); Mean Corpuscular Volume 83.4 fL (81.0-99.0); Mean Platelet Volume 9.9 fL (7.4-10.4); Platelet Count 127 10^3/uL (130-400); Red Cell Dist. Width 13.6 % (11.5-14.5); White Blood Cell Count 16.1 10^3/uL (4.8-10.8)
[2024-03-27 10:55] LABS: Band Neutrophils 8 % (0-3); Eosinophils 3 % (0-6); Lymphocytes 18 % (20-51); Metamyelocytes 2 % (-); Monocytes 14 % (2-9); Myelocytes 2 % (-); Segmented Neutrophils 48 % (42-75)
[2024-03-27 10:56] LABS: Atypical Lymphocytes 5 %; Platelets Checked Yes
[2024-03-27 10:57] LABS: Anisocytosis Slight; Normal RBC Morphology No; Ovalocytes Slight; Total Cells Counted 100
== END ==
LOC: REG 08:14
PROVIDERS: ATTENDING PHYSICIAN Internal Medicine Hematology & Oncology; FAMILY PHYSICIAN Family Medicine
DX: C19 Malignant neoplasm of rectosigmoid junction (principal)
CPT/HCPCS: 36415; 80053; 85025

== ENCOUNTER → 2024-03-30 14:01 | Outpatient (REF) | payer MEDICARE, SELFPAY ==
[2024-03-30 13:22] LABS: ALT (SGPT) 53 U/L (0-35); AST (SGOT) 56 U/L (14-36); Albumin 4.3 g/dl (3.5-5.0); Alkaline Phosphatase 100 U/L (38-126); Blood Urea Nitrogen 18 mg/dl (7-17); Calcium 8.8 mg/dl (8.4-10.2); Carbon Dioxide 25 mmol/L (22-30); Chloride 102 mmol/L (98-107); Glucose 128 mg/dl (70-99); Potassium 3.3 mmol/L (3.5-5.1); Sodium 141 mmol/L (135-145); Total Bilirubin 0.4 mg/dl (0.2-1.3); Total Protein 6.7 g/dl (6.3-8.2); eGFR > 60.00
== END ==
LOC: OIDL 14:01
PROVIDERS: ATTENDING PHYSICIAN Nurse Practitioner Adult Health
DX: C19 Malignant neoplasm of rectosigmoid junction (principal)
CPT/HCPCS: 80053

== ENCOUNTER → 2024-04-17 08:02 | Outpatient (REF) | payer MEDICARE, SELFPAY ==
[2024-04-17 08:43] LABS: % Basophils 1.5 % (0-2); % Eosinophils 8.5 % (0-6); % Immature Granulocytes 0.9 % (0-0.5); % Lymphocytes 35.9 % (20.5-51.1); % Monocytes 11.2 % (1.7-9.3); Absolute Basophils 0.1 10^3/uL (0-0.2); Absolute Eosinophils 0.8 10^3/uL (0-0.7); Absolute Immature Granulocytes 0.1 10^3/uL (0-0.05); Absolute Lymphocytes 3.3 10^3/uL (1.2-3.4); Absolute Neutrophils 3.8 10^3/uL (1.4-6.5); Hematocrit 40.5 % (37.0-47.0); Hemoglobin 13.5 g/dL (12.0-16.0); Mean Corp Hgb Conc. 33.3 g/dL (33.0-37.0); Mean Corpuscular Volume 86.9 fL (81.0-99.0); Mean Platelet Volume 10.2 fL (7.4-10.4); Nucleated Red Blood Cells % 0 %; Platelet Count 216 10^3/uL (130-400); Red Blood Cell Count 4.66 10^6/uL (4.20-5.40); Red Cell Dist. Width 15.5 % (11.5-14.5); White Blood Cell Count 9.1 10^3/uL (4.8-10.8)
[2024-04-17 09:25] LABS: ALT (SGPT) 24 U/L (0-35); AST (SGOT) 26 U/L (14-36); Albumin 4.1 g/dl (3.5-5.0); Alkaline Phosphatase 100 U/L (38-126); Blood Urea Nitrogen 10 mg/dl (7-17); Calcium 9.3 mg/dl (8.4-10.2); Carbon Dioxide 28 mmol/L (22-30); Chloride 103 mmol/L (98-107); Glucose 132 mg/dl (70-99); Potassium 4.5 mmol/L (3.5-5.1); Sodium 141 mmol/L (135-145); Total Bilirubin 0.5 mg/dl (0.2-1.3); Total Protein 6.3 g/dl (6.3-8.2); eGFR > 60.00
== END ==
LOC: REG 08:02
PROVIDERS: ATTENDING PHYSICIAN Internal Medicine Hematology & Oncology; FAMILY PHYSICIAN Family Medicine
DX: C19 Malignant neoplasm of rectosigmoid junction (principal)
CPT/HCPCS: 36415; 80053; 85025

== ENCOUNTER → 2024-05-01 08:01 | Outpatient (REF) | payer MEDICARE, SELFPAY ==
[2024-05-01 08:46] LABS: % Basophils 1.8 % (0-2); % Immature Granulocytes 1.7 % (0-0.5); % Lymphocytes 27.3 % (20.5-51.1); % Neutrophils 51.2 % (42.2-75.2); Absolute Basophils 0.2 10^3/uL (0-0.2); Absolute Eosinophils 1.6 10^3/uL (0-0.7); Absolute Immature Granulocytes 0.2 10^3/uL (0-0.05); Absolute Lymphocytes 3.6 10^3/uL (1.2-3.4); Absolute Monocytes 0.8 10^3/uL (0.1-0.6); Absolute Neutrophils 6.8 10^3/uL (1.4-6.5); Hematocrit 41.1 % (37.0-47.0); Hemoglobin 13.8 g/dL (12.0-16.0); Mean Corp Hgb Conc. 33.6 g/dL (33.0-37.0); Mean Corpuscular Hgb 29.9 pg (27.0-31.0); Mean Corpuscular Volume 89.2 fL (81.0-99.0); Mean Platelet Volume 9.4 fL (7.4-10.4); Nucleated Red Blood Cells % 0.2 %; Platelet Count 153 10^3/uL (130-400); Red Blood Cell Count 4.61 10^6/uL (4.20-5.40); Red Cell Dist. Width 16.8 % (11.5-14.5); White Blood Cell Count 13.2 10^3/uL (4.8-10.8)
[2024-05-01 09:01] LABS: ALT (SGPT) 21 U/L (0-35); AST (SGOT) 22 U/L (14-36); Albumin 4.2 g/dl (3.5-5.0); Alkaline Phosphatase 165 U/L (38-126); Blood Urea Nitrogen 14 mg/dl (7-17); Carbon Dioxide 28 mmol/L (22-30); Chloride 103 mmol/L (98-107); Glucose 137 mg/dl (70-99); Potassium 4.7 mmol/L (3.5-5.1); Sodium 142 mmol/L (135-145); Total Bilirubin 0.6 mg/dl (0.2-1.3); Total Protein 6.6 g/dl (6.3-8.2); eGFR > 60.00
== END ==
LOC: REG 08:01
PROVIDERS: ATTENDING PHYSICIAN Internal Medicine Hematology & Oncology
DX: C19 Malignant neoplasm of rectosigmoid junction (principal)
CPT/HCPCS: 36415; 80053; 85025

== ENCOUNTER → 2024-05-15 07:30 | Outpatient (REF) | payer MEDICARE, SELFPAY ==
[2024-05-15 08:21] LABS: % Basophils 1.5 % (0-2); % Eosinophils 9.8 % (0-6); % Monocytes 9.3 % (1.7-9.3); % Neutrophils 47.4 % (42.2-75.2); Absolute Basophils 0.2 10^3/uL (0-0.2); Absolute Eosinophils 1.1 10^3/uL (0-0.7); Absolute Immature Granulocytes 0.1 10^3/uL (0-0.05); Absolute Lymphocytes 3.4 10^3/uL (1.2-3.4); Absolute Neutrophils 5.2 10^3/uL (1.4-6.5); Hematocrit 41.2 % (37.0-47.0); Hemoglobin 13.7 g/dL (12.0-16.0); Mean Corp Hgb Conc. 33.3 g/dL (33.0-37.0); Mean Corpuscular Hgb 30.2 pg (27.0-31.0); Mean Corpuscular Volume 90.7 fL (81.0-99.0); Mean Platelet Volume 9.6 fL (7.4-10.4); Nucleated Red Blood Cells % 0 %; Platelet Count 176 10^3/uL (130-400); Red Blood Cell Count 4.54 10^6/uL (4.20-5.40); Red Cell Dist. Width 17.6 % (11.5-14.5)
[2024-05-15 08:58] LABS: ALT (SGPT) 25 U/L (0-35); AST (SGOT) 27 U/L (14-36); Albumin 4.3 g/dl (3.5-5.0); Alkaline Phosphatase 174 U/L (38-126); Blood Urea Nitrogen 12 mg/dl (7-17); Calcium 9.4 mg/dl (8.4-10.2); Carbon Dioxide 29 mmol/L (22-30); Chloride 103 mmol/L (98-107); Glucose 119 mg/dl (70-99); Sodium 142 mmol/L (135-145); Total Bilirubin 0.7 mg/dl (0.2-1.3); Total Protein 6.7 g/dl (6.3-8.2); eGFR > 60.00
== END ==
LOC: REG 07:30
PROVIDERS: ATTENDING PHYSICIAN Internal Medicine Hematology & Oncology
DX: C19 Malignant neoplasm of rectosigmoid junction (principal)
CPT/HCPCS: 36415; 80053; 85025

== ENCOUNTER → 2024-08-04 07:53 | Outpatient (REF) | payer MEDICARE, SELFPAY ==
[2024-08-04 09:15] LABS: % Basophils 1.2 % (0-2); % Eosinophils 6.6 % (0-6); % Immature Granulocytes 0.5 % (0-0.5); % Lymphocytes 12.5 % (20.5-51.1); % Monocytes 11.6 % (1.7-9.3); % Neutrophils 67.6 % (42.2-75.2); Absolute Basophils 0.1 10^3/uL (0-0.2); Absolute Eosinophils 0.4 10^3/uL (0-0.7); Absolute Lymphocytes 0.7 10^3/uL (1.2-3.4); Absolute Monocytes 0.7 10^3/uL (0.1-0.6); Hematocrit 43.6 % (37.0-47.0); Hemoglobin 14.4 g/dL (12.0-16.0); Mean Corpuscular Hgb 31.1 pg (27.0-31.0); Mean Corpuscular Volume 94.2 fL (81.0-99.0); Nucleated Red Blood Cells % 0 %; Platelet Count 259 10^3/uL (130-400); Red Blood Cell Count 4.63 10^6/uL (4.20-5.40); White Blood Cell Count 5.9 10^3/uL (4.8-10.8)
[2024-08-04 10:05] LABS: ALT (SGPT) 19 U/L (0-35); AST (SGOT) 22 U/L (14-36); Alkaline Phosphatase 103 U/L (38-126); Blood Urea Nitrogen 17 mg/dl (7-17); Calcium 9.4 mg/dl (8.4-10.2); Carbon Dioxide 27 mmol/L (22-30); Chloride 104 mmol/L (98-107); Glucose 118 mg/dl (70-99); Sodium 140 mmol/L (135-145); Total Bilirubin 0.6 mg/dl (0.2-1.3); Total Protein 6.6 g/dl (6.3-8.2); eGFR > 60.00
== END ==
LOC: REG 07:53
PROVIDERS: ATTENDING PHYSICIAN Internal Medicine Hematology & Oncology; FAMILY PHYSICIAN Family Medicine
DX: C19 Malignant neoplasm of rectosigmoid junction (principal)
CPT/HCPCS: 36415; 80053; 85025

== ENCOUNTER → 2024-08-21 08:06 | Outpatient (REF) | payer MEDICARE, SELFPAY ==
[2024-08-21 09:11] LABS: % Basophils 2.3 % (0-2); % Eosinophils 6.9 % (0-6); % Immature Granulocytes 3.1 % (0-0.5); % Lymphocytes 12.5 % (20.5-51.1); % Monocytes 10.7 % (1.7-9.3); % Neutrophils 64.5 % (42.2-75.2); Absolute Basophils 0.2 10^3/uL (0-0.2); Absolute Eosinophils 0.6 10^3/uL (0-0.7); Absolute Immature Granulocytes 0.3 10^3/uL (0-0.05); Absolute Monocytes 0.9 10^3/uL (0.1-0.6); Absolute Neutrophils 5.1 10^3/uL (1.4-6.5); Hematocrit 41.3 % (37.0-47.0); Hemoglobin 14.1 g/dL (12.0-16.0); Mean Corp Hgb Conc. 34.1 g/dL (33.0-37.0); Mean Corpuscular Hgb 30.9 pg (27.0-31.0); Mean Corpuscular Volume 90.4 fL (81.0-99.0); Mean Platelet Volume 9.3 fL (7.4-10.4); Nucleated Red Blood Cells % 0 %; Platelet Count 170 10^3/uL (130-400); Red Blood Cell Count 4.57 10^6/uL (4.20-5.40); Red Cell Dist. Width 13.9 % (11.5-14.5)
[2024-08-21 09:56] LABS: ALT (SGPT) 16 U/L (0-35); AST (SGOT) 19 U/L (14-36); Alkaline Phosphatase 137 U/L (38-126); Blood Urea Nitrogen 12 mg/dl (7-17); Calcium 9.2 mg/dl (8.4-10.2); Carbon Dioxide 28 mmol/L (22-30); Chloride 104 mmol/L (98-107); Glucose 120 mg/dl (70-99); Potassium 3.9 mmol/L (3.5-5.1); Sodium 140 mmol/L (135-145); Total Bilirubin 0.5 mg/dl (0.2-1.3); Total Protein 6.5 g/dl (6.3-8.2); eGFR > 60.00
== END ==
LOC: REG 08:06
PROVIDERS: ATTENDING PHYSICIAN Internal Medicine Hematology & Oncology; FAMILY PHYSICIAN Family Medicine
DX: C19 Malignant neoplasm of rectosigmoid junction (principal)
CPT/HCPCS: 36415; 80053; 85025

== ENCOUNTER → 2024-09-04 08:16 | Outpatient (REF) | payer MEDICARE, SELFPAY ==
[2024-09-04 09:06] LABS: Hematocrit 40.1 % (37.0-47.0); Hemoglobin 13.6 g/dL (12.0-16.0); Mean Corp Hgb Conc. 33.9 g/dL (33.0-37.0); Mean Corpuscular Hgb 30.7 pg (27.0-31.0); Mean Corpuscular Volume 90.5 fL (81.0-99.0); Mean Platelet Volume 9.2 fL (7.4-10.4); Platelet Count 154 10^3/uL (130-400); Red Blood Cell Count 4.43 10^6/uL (4.20-5.40); Red Cell Dist. Width 14.4 % (11.5-14.5)
[2024-09-04 09:44] LABS: % Basophils 1.4 % (0-2); % Eosinophils 7.5 % (0-6); % Immature Granulocytes 5.7 % (0-0.5); % Lymphocytes 7.8 % (20.5-51.1); % Monocytes 9.2 % (1.7-9.3); % Neutrophils 68.4 % (42.2-75.2); Absolute Basophils 0.2 10^3/uL (0-0.2); Absolute Eosinophils 1.1 10^3/uL (0-0.7); Absolute Immature Granulocytes 0.8 10^3/uL (0-0.05); Absolute Lymphocytes 1.1 10^3/uL (1.2-3.4); Absolute Monocytes 1.3 10^3/uL (0.1-0.6); Absolute Neutrophils 9.6 10^3/uL (1.4-6.5); Nucleated Red Blood Cells % 0.2 %
[2024-09-04 09:51] LABS: ALT (SGPT) 17 U/L (0-35); AST (SGOT) 21 U/L (14-36); Alkaline Phosphatase 166 U/L (38-126); Blood Urea Nitrogen 14 mg/dl (7-17); Calcium 9.1 mg/dl (8.4-10.2); Carbon Dioxide 29 mmol/L (22-30); Chloride 106 mmol/L (98-107); Glucose 105 mg/dl (70-99); Potassium 3.8 mmol/L (3.5-5.1); Sodium 143 mmol/L (135-145); Total Bilirubin 0.6 mg/dl (0.2-1.3); Total Protein 6.5 g/dl (6.3-8.2); eGFR > 60.00
== END ==
LOC: REG 08:16
PROVIDERS: ATTENDING PHYSICIAN Internal Medicine Hematology & Oncology; FAMILY PHYSICIAN Family Medicine
DX: C19 Malignant neoplasm of rectosigmoid junction (principal)
CPT/HCPCS: 36415; 80053; 85025

== ENCOUNTER → 2024-09-18 08:00 | Outpatient (REF) | payer MEDICARE, SELFPAY ==
[2024-09-18 09:34] LABS: % Basophils 1.6 % (0-2); % Eosinophils 5.4 % (0-6); % Immature Granulocytes 4.6 % (0-0.5); % Lymphocytes 11.7 % (20.5-51.1); % Neutrophils 65.7 % (42.2-75.2); Absolute Basophils 0.2 10^3/uL (0-0.2); Absolute Eosinophils 0.5 10^3/uL (0-0.7); Absolute Immature Granulocytes 0.5 10^3/uL (0-0.05); Absolute Lymphocytes 1.1 10^3/uL (1.2-3.4); Absolute Monocytes 1.1 10^3/uL (0.1-0.6); Absolute Neutrophils 6.4 10^3/uL (1.4-6.5); Hematocrit 39.9 % (37.0-47.0); Hemoglobin 13.5 g/dL (12.0-16.0); Mean Corp Hgb Conc. 33.8 g/dL (33.0-37.0); Mean Corpuscular Hgb 31.3 pg (27.0-31.0); Mean Corpuscular Volume 92.6 fL (81.0-99.0); Mean Platelet Volume 9.8 fL (7.4-10.4); Nucleated Red Blood Cells % 0 %; Platelet Count 154 10^3/uL (130-400); Red Blood Cell Count 4.31 10^6/uL (4.20-5.40); Red Cell Dist. Width 15.3 % (11.5-14.5); White Blood Cell Count 9.8 10^3/uL (4.8-10.8)
[2024-09-18 10:44] LABS: ALT (SGPT) 17 U/L (0-35); AST (SGOT) 20 U/L (14-36); Albumin 4.6 g/dl (3.5-5.0); Alkaline Phosphatase 168 U/L (38-126); Blood Urea Nitrogen 14 mg/dl (7-17); Calcium 9.5 mg/dl (8.4-10.2); Carbon Dioxide 26 mmol/L (22-30); Chloride 104 mmol/L (98-107); Glucose 109 mg/dl (70-99); Potassium 4.6 mmol/L (3.5-5.1); Sodium 144 mmol/L (135-145); Total Bilirubin 0.7 mg/dl (0.2-1.3); Total Protein 6.9 g/dl (6.3-8.2); eGFR > 60.00
== END ==
LOC: REG 08:00
PROVIDERS: ATTENDING PHYSICIAN Internal Medicine Hematology & Oncology; FAMILY PHYSICIAN Family Medicine
DX: C19 Malignant neoplasm of rectosigmoid junction (principal)
CPT/HCPCS: 36415; 80053; 85025

== ENCOUNTER → 2024-10-02 07:50 | Outpatient (REF) | payer MEDICARE, SELFPAY ==
[2024-10-02 09:06] LABS: % Basophils 1.7 % (0-2); % Eosinophils 5.4 % (0-6); % Immature Granulocytes 1.2 % (0-0.5); % Lymphocytes 9.2 % (20.5-51.1); % Monocytes 10.9 % (1.7-9.3); % Neutrophils 71.6 % (42.2-75.2); Absolute Basophils 0.2 10^3/uL (0-0.2); Absolute Eosinophils 0.5 10^3/uL (0-0.7); Absolute Immature Granulocytes 0.1 10^3/uL (0-0.05); Absolute Lymphocytes 0.9 10^3/uL (1.2-3.4); Absolute Monocytes 1.1 10^3/uL (0.1-0.6); Absolute Neutrophils 6.9 10^3/uL (1.4-6.5); Hematocrit 40.5 % (37.0-47.0); Hemoglobin 13.8 g/dL (12.0-16.0); Mean Corp Hgb Conc. 34.1 g/dL (33.0-37.0); Mean Corpuscular Hgb 31.7 pg (27.0-31.0); Mean Corpuscular Volume 92.9 fL (81.0-99.0); Mean Platelet Volume 9.6 fL (7.4-10.4); Nucleated Red Blood Cells % 0 %; Platelet Count 183 10^3/uL (130-400); Red Blood Cell Count 4.36 10^6/uL (4.20-5.40); Red Cell Dist. Width 15.8 % (11.5-14.5); White Blood Cell Count 9.6 10^3/uL (4.8-10.8)
[2024-10-02 09:54] LABS: ALT (SGPT) 16 U/L (0-35); AST (SGOT) 19 U/L (14-36); Albumin 4.6 g/dl (3.5-5.0); Alkaline Phosphatase 147 U/L (38-126); Blood Urea Nitrogen 19 mg/dl (7-17); Calcium 9.6 mg/dl (8.4-10.2); Carbon Dioxide 26 mmol/L (22-30); Chloride 104 mmol/L (98-107); Glucose 98 mg/dl (70-99); Potassium 4.6 mmol/L (3.5-5.1); Sodium 143 mmol/L (135-145); Total Bilirubin 0.9 mg/dl (0.2-1.3); Total Protein 6.9 g/dl (6.3-8.2); eGFR > 60.00
== END ==
LOC: REG 07:50
PROVIDERS: ATTENDING PHYSICIAN Internal Medicine Hematology & Oncology
DX: C19 Malignant neoplasm of rectosigmoid junction (principal)
CPT/HCPCS: 36415; 80053; 85025

== ENCOUNTER → 2024-10-16 08:08 | Outpatient (REF) | payer MEDICARE, SELFPAY ==
[2024-10-16 08:30] LABS: % Basophils 1.6 % (0-2); % Eosinophils 5.1 % (0-6); % Immature Granulocytes 1.6 % (0-0.5); % Lymphocytes 9.1 % (20.5-51.1); % Monocytes 10.5 % (1.7-9.3); % Neutrophils 72.1 % (42.2-75.2); Absolute Basophils 0.2 10^3/uL (0-0.2); Absolute Eosinophils 0.5 10^3/uL (0-0.7); Absolute Immature Granulocytes 0.2 10^3/uL (0-0.05); Absolute Lymphocytes 0.9 10^3/uL (1.2-3.4); Absolute Monocytes 1.1 10^3/uL (0.1-0.6); Absolute Neutrophils 7.4 10^3/uL (1.4-6.5); Hematocrit 39.2 % (37.0-47.0); Hemoglobin 13.2 g/dL (12.0-16.0); Mean Corp Hgb Conc. 33.7 g/dL (33.0-37.0); Mean Corpuscular Hgb 31.7 pg (27.0-31.0); Mean Corpuscular Volume 94.2 fL (81.0-99.0); Mean Platelet Volume 9.4 fL (7.4-10.4); Nucleated Red Blood Cells % 0 %; Platelet Count 188 10^3/uL (130-400); Red Blood Cell Count 4.16 10^6/uL (4.20-5.40); Red Cell Dist. Width 15.7 % (11.5-14.5); White Blood Cell Count 10.3 10^3/uL (4.8-10.8)
[2024-10-16 09:11] LABS: ALT (SGPT) 15 U/L (0-35); AST (SGOT) 18 U/L (14-36); Albumin 4.3 g/dl (3.5-5.0); Alkaline Phosphatase 150 U/L (38-126); Blood Urea Nitrogen 16 mg/dl (7-17); Calcium 9.4 mg/dl (8.4-10.2); Carbon Dioxide 27 mmol/L (22-30); Chloride 105 mmol/L (98-107); Glucose 112 mg/dl (70-99); Potassium 3.8 mmol/L (3.5-5.1); Sodium 142 mmol/L (135-145); Total Protein 6.5 g/dl (6.3-8.2); eGFR > 60.00
== END ==
LOC: REG 08:08
PROVIDERS: ATTENDING PHYSICIAN Internal Medicine Hematology & Oncology; FAMILY PHYSICIAN Family Medicine
DX: C19 Malignant neoplasm of rectosigmoid junction (principal)
CPT/HCPCS: 36415; 80053; 85025

== ENCOUNTER → 2024-11-06 08:40 | Outpatient (REF) | payer MEDICARE, SELFPAY ==
[2024-11-06 11:09] LABS: TSH 0.73 uIU/ml (0.47-4.68)
[2024-11-06 11:19] LABS: ALT (SGPT) 15 U/L (0-35); AST (SGOT) 19 U/L (14-36); Albumin 4.6 g/dl (3.5-5.0); Alkaline Phosphatase 117 U/L (38-126); Blood Urea Nitrogen 20 mg/dl (7-17); Calcium 9.1 mg/dl (8.4-10.2); Carbon Dioxide 24 mmol/L (22-30); Chloride 106 mmol/L (98-107); Glucose 115 mg/dl (70-99); HDL Cholesterol 51 mg/dl; LDL Cholesterol, Calculated 148 mg/dl; Potassium 4.6 mmol/L (3.5-5.1); Sodium 139 mmol/L (135-145); Total Bilirubin 0.8 mg/dl (0.2-1.3); Total Cholesterol 242 mg/dl (50-199); Total Protein 7.1 g/dl (6.3-8.2); Triglyceride 218 mg/dl (10-149); Very Low Density Lipoprotein 43 mg/dl (0-30); eGFR > 60.00
[2024-11-06 11:21] LABS: Glycohemoglobin (HgbA1c) 5.6 % (4.0-5.6)
[2024-11-06 13:00] LABS: Microalbumin, Random Urine 0.8 mg/dl (0.6-1.7)
== END ==
LOC: REG 08:40
PROVIDERS: ATTENDING PHYSICIAN Family Medicine
DX: E11.65 Type 2 diabetes mellitus with hyperglycemia (principal); E78.2 Mixed hyperlipidemia; Z00.01 Encounter for general adult medical examination with abnormal findings
CPT/HCPCS: 36415; 80053; 80061; 82043; 83036; 84443

== ENCOUNTER → 2024-11-07 10:52 | Outpatient (REF) | payer MEDICARE, SELFPAY | LOC: HWWDC 10:52 | PROVIDERS: ATTENDING PHYSICIAN Obstetrics & Gynecology Gynecology; FAMILY PHYSICIAN Family Medicine | DX: Z12.31 Encounter for screening mammogram for malignant neoplasm of breast (principal) | CPT/HCPCS: 77063; 77067 ==

== ENCOUNTER → 2024-12-01 13:09 | Outpatient (REF) | payer MEDICARE, SELFPAY ==
[2024-12-01 15:11] LABS: Urine Albumin Negative (Neg - Trace); Urine Bilirubin Negative (Negative); Urine Character Clear (Clear); Urine Color Yellow; Urine Glucose Negative (Negative); Urine Ketone Negative (Negative); Urine Leukocyte Negative (Negative); Urine Nitrite Negative (Negative); Urine Occult Blood Negative (Negative); Urine Urobilinogen Negative (Neg - 1+)
== END ==
LOC: REG 13:09
PROVIDERS: ATTENDING PHYSICIAN Nurse Practitioner Primary Care; FAMILY PHYSICIAN Family Medicine
DX: C19 Malignant neoplasm of rectosigmoid junction (principal); G62.0 Drug-induced polyneuropathy
CPT/HCPCS: 36415; 81003; 87086

== ENCOUNTER → 2024-12-25 13:41 | Outpatient (REF) | payer MEDICARE, SELFPAY | LOC: RAD 13:41 | PROVIDERS: ATTENDING PHYSICIAN Nurse Practitioner Adult Health; FAMILY PHYSICIAN Family Medicine; REFERRING PHYSICIAN Internal Medicine Hematology & Oncology | DX: N95.0 Postmenopausal bleeding (principal) | CPT/HCPCS: 76830; 76856 ==

== ENCOUNTER → 2025-01-11 07:44 | Outpatient (REF) | payer MEDICARE, SELFPAY ==
[2025-01-11 08:32] LABS: Hematocrit 43.0 % (37.0-47.0); Hemoglobin 14.1 g/dL (12.0-16.0); Mean Corp Hgb Conc. 32.8 g/dL (33.0-37.0); Mean Corpuscular Volume 90.7 fL (81.0-99.0); Nucleated Red Blood Cells % 0 %; Platelet Count 212 10^3/uL (130-400); Red Cell Dist. Width 12.3 % (11.5-14.5)
[2025-01-11 09:09] LABS: ALT (SGPT) 12 U/L (0-35); AST (SGOT) 17 U/L (14-36); Albumin 4.4 g/dl (3.5-5.0); Alkaline Phosphatase 87 U/L (38-126); Blood Urea Nitrogen 16 mg/dl (7-17); Calcium 9.3 mg/dl (8.4-10.2); Carbon Dioxide 29 mmol/L (22-30); Chloride 104 mmol/L (98-107); Glucose 111 mg/dl (70-99); Potassium 4.5 mmol/L (3.5-5.1); Sodium 141 mmol/L (135-145); Total Protein 7.1 g/dl (6.3-8.2); eGFR > 60.00
[2025-01-12 19:35] LABS: CEA 1.67 ng/ml
== END ==
LOC: REG 07:44
PROVIDERS: ATTENDING PHYSICIAN Internal Medicine Hematology & Oncology; FAMILY PHYSICIAN Family Medicine
DX: C19 Malignant neoplasm of rectosigmoid junction (principal); G62.0 Drug-induced polyneuropathy
CPT/HCPCS: 36415; 80053; 82378; 85025

== ENCOUNTER 2025-01-15 06:16 | Day surgery (SDC) | payer MEDICARE, SELFPAY | END 2025-01-15 08:26 | disposition home or self-care (01) | LOC: GI 06:16 | PROVIDERS: ATTENDING PHYSICIAN Internal Medicine | DX: Z12.11 Encounter for screening for malignant neoplasm of colon (principal); D12.3 Benign neoplasm of transverse colon; K57.30 Diverticulosis of large intestine without perforation or abscess without bleeding; Z85.038 Personal history of other malignant neoplasm of large intestine; Z98.0 Intestinal bypass and anastomosis status | CPT/HCPCS: 45385; 88305 ==

== ENCOUNTER → 2025-04-23 07:57 | Outpatient (REF) | payer MEDICARE, SELFPAY ==
[2025-04-23 08:52] LABS: Hematocrit 41.0 % (37.0-47.0); Hemoglobin 13.9 g/dL (12.0-16.0); Mean Corp Hgb Conc. 33.9 g/dL (33.0-37.0); Mean Corpuscular Volume 87.8 fL (81.0-99.0); Nucleated Red Blood Cells % 0 %; Platelet Count 211 10^3/uL (130-400); Red Cell Dist. Width 13.7 % (11.5-14.5)
[2025-04-23 10:21] LABS: ALT (SGPT) 14 U/L (0-35); AST (SGOT) 19 U/L (14-36); Albumin 4.3 g/dl (3.5-5.0); Alkaline Phosphatase 71 U/L (38-126); Blood Urea Nitrogen 16 mg/dl (7-17); Calcium 9.2 mg/dl (8.4-10.2); Carbon Dioxide 26 mmol/L (22-30); Chloride 104 mmol/L (98-107); Glucose 87 mg/dl (70-99); Potassium 3.8 mmol/L (3.5-5.1); Sodium 136 mmol/L (135-145); Total Protein 7.3 g/dl (6.3-8.2); eGFR > 60.00
[2025-04-23 20:28] LABS: CEA 1.90 ng/ml
== END ==
LOC: REG 07:57
PROVIDERS: ATTENDING PHYSICIAN Internal Medicine Hematology & Oncology
DX: C19 Malignant neoplasm of rectosigmoid junction (principal); G62.0 Drug-induced polyneuropathy
CPT/HCPCS: 36415; 80053; 82378; 85025

== ENCOUNTER → 2025-04-30 06:43 | Outpatient (REF) | payer MEDICARE, SELFPAY | LOC: RAD 06:43 | PROVIDERS: ATTENDING PHYSICIAN Internal Medicine Hematology & Oncology; FAMILY PHYSICIAN Family Medicine | DX: C19 Malignant neoplasm of rectosigmoid junction (principal); G62.0 Drug-induced polyneuropathy | CPT/HCPCS: 71260; 74177; Q9967 ==

== ENCOUNTER → 2025-05-11 08:03 | Outpatient (REF) | payer MEDICARE, SELFPAY ==
[2025-05-11 09:38] LABS: INR 0.99; PT 13.2 Sec (11.4-14.6)
[2025-05-11 09:39] LABS: APTT 29.0 Sec (23.4-35.0)
== END ==
LOC: REG 08:03
PROVIDERS: ATTENDING PHYSICIAN Internal Medicine Hematology & Oncology
DX: C19 Malignant neoplasm of rectosigmoid junction (principal); G62.0 Drug-induced polyneuropathy
CPT/HCPCS: 36415; 85610; 85730

== ENCOUNTER → 2025-05-17 12:17 | Outpatient (REF) | payer MEDICARE, SELFPAY ==
[2025-05-17 12:57] VITALS: BP 130/71; BP_SYST 63
== END ==
LOC: RADI 12:17
PROVIDERS: ATTENDING PHYSICIAN Internal Medicine Hematology & Oncology; FAMILY PHYSICIAN Family Medicine
DX: Z45.2 Encounter for adjustment and management of vascular access device (principal); C19 Malignant neoplasm of rectosigmoid junction
CPT/HCPCS: 36590; 77001